=== PATIENT | female | born 1990 | race Caucasian/White ===

== ENCOUNTER 2017-08-29 08:45 | Inpatient (IN) | payer MEDICAID ==
[2017-08-29] MEDS ORDERED: CARBOPROST 250 MCG INJ IM ×2 (13:00→23:00)
[2017-08-29] MEDS ORDERED: OXYTOCIN 30 UNITS/LR 500 ML IV ×3 (13:00→23:00)
[2017-08-29] MEDS ORDERED: MISOPROSTOL 200 MCG TAB PR ×2 (13:00→23:00)
[2017-08-29] MEDS ORDERED: METHYLERGONOVINE 0.2 MG INJ IM ×2 (13:00→23:00)
[2017-08-29 13:24] LABS: ADD MAN DIFF? NO
[2017-08-29 13:29] LABS: WHITE BLOOD COUNT 9.3 10^3/ul (4.8-10.8)
[2017-08-29 13:29] LABS: BASOPHILS % 0.3 % (0.0-2.0); EOSINOPHILS % 0.1 % (0.0-7.0); HEMATOCRIT 38.8 % (37.0-47.0); HEMOGLOBIN 13.3 g/dl (12.0-16.0); LYMPHOCYTES # 2.4 10^3/ul (0.8-2.9); LYMPHOCYTES % 25.5 % (15.0-51.0); MEAN CORPUSCULAR HGB CONC 34.3 g/dl (32.0-37.0); MEAN CORPUSCULAR VOLUME 87.4 fl (82.0-101.0); MONOCYTE # 0.6 10^3/ul (0.3-0.9); MONOCYTES % 6.9 % (0.0-11.0); NEUTROPHIL # 6.2 10^3/ul (1.6-7.5); NEUTROPHILS % 66.8 % (39.0-77.0); PLATELET COUNT 142 10^3/UL (140-415); RED BLOOD COUNT 4.44 10^6/ul (4.20-5.40); RED CELL DISTRIBUTION WIDTH 13.7 % (11.5-14.5)
[2017-08-29 13:46] LABS: INR 0.86; PROTIME 11.8 Sec (11.9-14.9); PT RATIO 0.9
[2017-08-29] MEDS ORDERED: AMPICILLIN 2 GM/NS (PMX) 100 ML (13:50)
[2017-08-29] MEDS: LACTATED RINGER'S 1,000 ML IV ×2 (13:53→16:00)
[2017-08-29] MEDS: AMPICILLIN 2 GM/NS (PMX) 100 ML IVPB (13:58)
[2017-08-29 15:51] LABS: RAPID PLASMA REAGIN NONREACTIVE (NR)
[2017-08-29] MEDS ORDERED: CITRIC ACID/SODIUM CITRATE 15 ML CUP (16:35)
[2017-08-29] MEDS: CITRIC ACID/SODIUM CITRATE 15 ML CUP PO (16:41)
[2017-08-29] MEDS ORDERED: KETOROLAC 30 MG INJ (17:03)
[2017-08-29] MEDS ORDERED: morphine SULFATE/PF (10 MG/10 ML) INJ (17:03)
[2017-08-29] MEDS ORDERED: METOCLOPRAMIDE 10 MG INJ (17:03)
[2017-08-29] MEDS ORDERED: ONDANSETRON 4 MG INJ (17:03)
[2017-08-29] MEDS ORDERED: BUPIVACAINE 0.75%/DEXT (SPINAL) 2 ML INJ (17:04)
[2017-08-29] MEDS ORDERED: FENTAnyl 50 MCG/ML VIAL (17:46)
[2017-08-29] MEDS: AMPICILLIN 1 GM/NS (PMX) 50 ML IVPB ×2 (18:00→22:00)
[2017-08-29] MEDS: CEFAZOLIN 2 GM/50 ML (PMX) 50 ML IV (18:01)
[2017-08-29] MEDS: OXYTOCIN 30 UNITS/LR 500 ML IV ×3 (19:11→22:59)
[2017-08-29] MEDS ORDERED: HYDROmorphONE (0.2 MG/ML) 10ML SYG IV ×3 (19:30)
[2017-08-29] MEDS ORDERED: morphine 2 MG INJ IV ×3 (19:30)
[2017-08-29] MEDS ORDERED: NALOXONE (0.4 MG/ML) INJ IV (19:30)
[2017-08-29] MEDS: ONDANSETRON 4 MG INJ IV ×2 (20:03→21:02)
[2017-08-29] MEDS: CEFAZOLIN 1 GM/50 ML (PMX) 50 ML IVPB (23:30)
[2017-08-30] MEDS ORDERED: ONDANSETRON 4 MG INJ IV (00:30)
[2017-08-30] MEDS: OXYTOCIN 30 UNITS/LR 500 ML IV ×4 (01:41→16:10)
[2017-08-30 08:24] LABS: ADD MAN DIFF? NO
[2017-08-30 08:30] LABS: BASOPHILS % 0.2 % (0.0-2.0); HEMATOCRIT 36.5 % (37.0-47.0); HEMOGLOBIN 12.3 g/dl (12.0-16.0); LYMPHOCYTES # 2.1 10^3/ul (0.8-2.9); LYMPHOCYTES % 21.2 % (15.0-51.0); MEAN CORPUSCULAR HEMOGLOBIN 29.7 pg (29.0-33.0); MEAN CORPUSCULAR HGB CONC 33.7 g/dl (32.0-37.0); MEAN CORPUSCULAR VOLUME 88.2 fl (82.0-101.0); MEAN PLATELET VOLUME 12.2 fl (7.4-10.4); MONOCYTE # 0.6 10^3/ul (0.3-0.9); MONOCYTES % 5.9 % (0.0-11.0); NEUTROPHIL # 7.2 10^3/ul (1.6-7.5); NEUTROPHILS % 72.2 % (39.0-77.0); PLATELET COUNT 134 10^3/UL (140-415); RED BLOOD COUNT 4.14 10^6/ul (4.20-5.40); RED CELL DISTRIBUTION WIDTH 13.6 % (11.5-14.5)
[2017-08-30] MEDS: SENNA/DOCUSATE NA (8.6MG/50MG) TAB PO ×2 (09:17→20:09)
[2017-08-30] MEDS: KETOROLAC 30 MG INJ IV (12:30)
[2017-08-30] MEDS ORDERED: OXYCODONE/ACETAMINOPHEN (5/325) TAB PO (19:30)
[2017-08-30] MEDS ORDERED: HYDROCODONE/APAP (5/325) TAB PO (19:30)
[2017-08-30] MEDS: OXYCODONE/ACETAMINOPHEN (5/325) TAB PO (22:43)
[2017-08-30] MEDS: IBUPROFEN 600 MG TAB PO (23:40)
[2017-08-31] MEDS: IBUPROFEN 600 MG TAB PO ×4 (05:25→23:59)
[2017-08-31] MEDS: INFLUENZA VIRUS VACCINE 0.5 ML (DISPENSING) IM* (09:14)
[2017-08-31] MEDS: OXYCODONE/ACETAMINOPHEN (5/325) TAB PO (09:52)
[2017-08-31] MEDS: SENNA/DOCUSATE NA (8.6MG/50MG) TAB PO ×2 (09:52→21:31)
[2017-08-31 12:30] LABS: HEPATITIS B SURFACE ANTIGEN NEGATIVE (NEGATIVE)
[2017-08-31] MEDS: LANOLIN 7 GM TUBE TOP (12:30)
[2017-08-31] MEDS: HYDROCODONE/APAP (5/325) TAB PO (16:31)
[2017-09-01] MEDS: IBUPROFEN 600 MG TAB PO ×2 (05:35→11:50)
[2017-09-01] MEDS: DIPHTH/TET/ACEL PERTUSS (ADULT) 0.5 ML VIAL IM* (09:22)
[2017-09-01] MEDS: SENNA/DOCUSATE NA (8.6MG/50MG) TAB PO (09:23)
== END 2017-09-01 16:00 | disposition home or self-care (01) | DRG 766 ==
LOC: OBT 08:45 → L-D 08:46 → OBT 12:56 → L-D 12:30 → PP1 22:18
PROVIDERS: Obstetrics & Gynecology
PROC: 10D00Z1 Extraction of Products of Conception, Low, Open Approach (ICD-10-PCS; principal; 2017-08-29 17:45)
DX: O82 Encounter for cesarean delivery without indication (principal); Z3A.40 40 weeks gestation of pregnancy; Z37.0 Single live birth
CPT/HCPCS: 76815; 76818; 85025; 85610; 85730; 86592; 86850; 86900; 86901; 87340; 94760; 99464